=== PATIENT | male | born 1965 ===

== ENCOUNTER 2019-05-29 07:32 | Emergency (ER) | payer BC, OTHER ==
[2019-05-29 08:01] VITALS: BP 128/87
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
== END 2019-05-29 10:34 | disposition home or self-care (01) ==
LOC: UCEAST 07:32
DX: S42.91XA Fracture of right shoulder girdle, part unspecified, initial encounter for closed fracture (principal); V28.4XXA Motorcycle driver injured in noncollision transport accident in traffic accident, initial encounter; Y92.410 Unspecified street and highway as the place of occurrence of the external cause; F17.210 Nicotine dependence, cigarettes, uncomplicated
CPT/HCPCS: 72050; 72070; 99211; G0463